=== PATIENT | female | born 1965 | race Caucasian/White ===

== ENCOUNTER 2017-03-07 05:57 | Day surgery (SDC) | payer BC, OTHER ==
[2017-02-27 10:25] LABS: ABSOLUTE EOSINOPHILS # (AUTO) 0.2 10^3/uL (0.0-0.6); ABSOLUTE LYMPHOCYTES (AUTO) 3.1 10^3/uL (0.5-4.7); ABSOLUTE MONOCYTES (AUTO) 0.6 10^3/uL (0.1-1.4); ABSOLUTE NEUT (AUTO) 2.6 10^3/uL (1.7-8.2); BASOPHILS % (AUTO) 0.3 % (0-2); EOSINOPHILS % (AUTO) 2.8 % (0-6); HEMATOCRIT 36.8 % (36.0-47.0); HEMOGLOBIN 12.5 g/dL (12.0-15.5); HGB HCT DIFFERENCE 0.7; MEAN CORPUSCULAR HEMOGLOBIN 33.4 pg (27.0-33.4); MEAN CORPUSCULAR HGB CONC 33.8 g/dL (32.0-36.0); MEAN CORPUSCULAR VOLUME 99 fl (80-97); MONOCYTES % (AUTO) 9.7 % (3-13); RED BLOOD COUNT 3.73 10^6/uL (3.72-5.28); RED CELL DISTRIBUTION WIDTH 12.5 % (11.5-14.0); SEGMENTED NEUTROPHILS % (AUTO) 39.2 % (42-78); WHITE BLOOD COUNT 6.5 10^3/uL (4.0-10.5)
[2017-02-27 10:31] LABS: APPEARANCE,URINE CLEAR; BILIRUBIN,URINE NEGATIVE (NEGATIVE); GLUCOSE, URINE NEGATIVE (NEGATIVE); KETONES,URINE NEGATIVE (NEGATIVE); LEUKOCYTE ESTERASE,URINE NEGATIVE (NEGATIVE); NITRITE,URINE NEGATIVE (NEGATIVE); PROTEIN,URINE NEGATIVE (NEGATIVE); URINE SPECIFIC GRAVITY 1.012; UROBILINOGEN,URINE NEGATIVE mg/dL (<2.0)
[2017-02-27 10:50] LABS: ANION GAP 10 (5-19); BLOOD UREA NITROGEN 14 mg/dL (7-20); CALCIUM 8.9 mg/dL (8.4-10.2); CARBON DIOXIDE 25 mmol/L (22-30); CHLORIDE 105 mmol/L (98-107); CREATININE RESULT 0.73 mg/dL (0.52-1.25); GLUCOSE 142 mg/dL (75-110); POTASSIUM 4.2 mmol/L (3.6-5.0); SODIUM 139.9 mmol/L (137-145)
--- NOTE | 2017-02-27 13:11 | RADIOLOGY REPORT (SQ) ---
EXAM DESCRIPTION: CHEST PA/LATERAL COMPLETED DATE/TIME: 02/27/2017 11:16 am REASON FOR STUDY: PRE OP COMPARISON: Chest films 08/10/2009, 07/17/2013 CT angio chest 12/12/2015 EXAM PARAMETERS: NUMBER OF VIEWS: two views TECHNIQUE: Digital Frontal and Lateral radiographic views of the chest acquired. RADIATION DOSE: NA LIMITATIONS: none FINDINGS: LUNGS AND PLEURA: No opacities, masses or pneumothorax. No pleural effusion. MEDIASTINUM AND HILAR STRUCTURES: No masses or contour abnormalities. HEART AND VASCULAR STRUCTURES: Heart normal size. No evidence for failure. BONES: No acute findings. HARDWARE: None in the chest. OTHER: No other significant finding. IMPRESSION: NO SIGNIFICANT RADIOGRAPHIC FINDING IN THE CHEST. TECHNICAL DOCUMENTATION: JOB ID: [id number] [employer]- All Rights Reserved
--- NOTE | 2017-02-27 21:24 | EKG REPORT ---
SEVERITY:- NORMAL ECG - SINUS RHYTHM : Confirmed by: Bettie Elizabeth 27-Feb-2017 21:23:05
[~2017-03-07 05:57] MED LIST: CEFAZOLIN 2 GM/D5W RTU 2 GM/50 ML RTUPB IV PRN; LIDOCAINE 0.5% INJ-PF (5 MG/ML) 50 ML SDV INJ PRN; RINGERS SOLUTION,LACTATED 1,000 ML IV PRN
[2017-03-07] MEDS ORDERED: EPINEPHRINE INJ/PF 1 MG/1 ML AMPULE ONE (07:27)
[2017-03-07] MEDS ORDERED: BUPIVACAINE HCL 0.5 % INJ/PF 30 ML SDV ONE (07:27)
[2017-03-07] MEDS ORDERED: FENTANYL CITRATE INJ/PF 100 MCG/2 ML AMPUL ONE ×2 (08:49→08:50)
[2017-03-07] MEDS ORDERED: PROPOFOL INJ 200 MG/20 ML VIAL IV ONE (08:50)
[2017-03-07] MEDS ORDERED: IBUPROFEN INJ 800 MG/8 ML VIAL IV ONE (08:50)
[2017-03-07] MEDS ORDERED: DEXAMETHASONE SOD PHOSPHATE INJ 4 MG/1 ML VIAL ONE (08:50)
[2017-03-07] MEDS ORDERED: MIDAZOLAM 2 MG/2 ML INJ ONE (08:50)
[2017-03-07] MEDS ORDERED: ONDANSETRON HCL INJ/PF 4 MG/2 ML SDV ONE (08:50)
[2017-03-07] MEDS ORDERED: MORPHINE SULFATE 10 MG/ML INJ ONE ×2 (08:51→12:57)
[2017-03-07] MEDS ORDERED: FENTANYL CITRATE INJ/PF 100 MCG/2 ML AMPUL IV PRN ×3 (09:45)
[2017-03-07] MEDS ORDERED: MORPHINE SULFATE 10 MG/ML INJ IV PRN (09:45)
[2017-03-07] MEDS ORDERED: MEPERIDINE HCL/PF INJ 25 MG/1 ML DISP.SYRIN IV PRN (09:45)
[2017-03-07] MEDS ORDERED: OXYCODONE-ACETAMINOPHEN 5-325 MG TABLET PO PRN ×2 (09:45)
[2017-03-07] MEDS ORDERED: PROMETHAZINE HCL INJ 25 MG/1 ML VIAL IV PRN ×2 (09:45)
[2017-03-07] MEDS ORDERED: DIPHENHYDRAMINE HCL 50 MG/ML VIAL IV PRN (09:45)
[2017-03-07] MEDS: FENTANYL CITRATE INJ/PF 100 MCG/2 ML AMPUL ONE ×4 (12:40→13:10)
--- NOTE | 2017-03-07 12:40 | Operative Report ---
Operative Report DATE OF SURGERY: 03/07/17 PREOPERATIVE DIAGNOSIS: Left rotator cuff tear. POSTOPERATIVE DIAGNOSIS: Left full-thickness rotator cuff tear with SLAP tear and partial tear of the long head of the biceps OPERATION: Left shoulder arthroscopic rotator cuff repair and arthroscopic biceps tenodesis SURGEON: CODY PONCE ANESTHESIA: GA TISSUE REMOVED OR ALTERED: None COMPLICATIONS: None ESTIMATED BLOOD LOSS: 15 mL INTRAOPERATIVE FINDINGS: As above PROCEDURE: IMPLANTS: 5.5 bio composite corkscrew 2 and 4.75 swivel lock 2 DESCRIPTION OF PROCEDURE: Patient was brought to the operating room placed in supine position. After successfully induced and intubated the patient patient was placed in the beachchair position the head and endotracheal tube was secured appropriately. The left shoulder shoulder was prepped and draped in a normal surgical fashion. A timeout was done identifying the left shoulder shoulder as the correct site. After inflating the glenohumeral joint with sterile saline solution an 11 blade was used to establish the posterior portal. The arthroscope was introduced and return of fluid was seen showing that we successfully penetrated the glenohumeral joint. With the use of spinal needle we're able to daphnie the anterior portal and using an 11 blade able to establish anterior portal. A cannula was introduced through the anterior portal. At this point diagnostic scope was done. Patient noted to have a type II SLAP tear with greater than 5 mm of lifting off of the superior labrum. In additional to this patient also had a partial tear of the long head of the biceps tendon at the attachment to the labrum. As suspected patient had an MRI and scope showing full-thickness rotator cuff tear. I percutaneously. The long head of biceps with a spinal needle and fed a Prolene stitch through it. Needle was removed and the attachment of the long head of the biceps was cut with the arthroscopic scissor. A lateral portal was established 11 blade. 4.0mm shaver was introduced and was used to prepare the tear and greater tuberosity bone for preparation of anchor placement. Once I was satisfied with the preparation I then redirected my scope into the subacromial space. First was able to release the tenotomized biceps tendon through the lateral portal and a half FiberWire stitch through it. Remove the biceps through the anterior portal. I was able to visualize the rotator cuff tear in the subacromial space and debride it and define it further. A percutaneous incision was then just adjacent to the acromion on the lateral aspect. Through this percutaneous hole the awl was used to prepare the hole for an anchor. [place] was percutaneously sent flushed with the bone just adjacent to the articular margin. A second anchor was placed more posteriorly using same technique. Sutures were passed through the anterior portal and percutaneous incision for proper suture management. With the use of the scorpion and I proceeded to pass the sutures through the rotator cuff tendon with proper suture management was able to pass the strands either through percutaneous hole or the anterior portal. Once I was satisfied with placement of all my sutures I then proceeded to do my arthroscopic knots. At this point the strands were used to do our lateral row. Bicomposite show out was used and the lateral aspect of the humerus was then cleaned off with a shaver and electrocautery. Once identified once I was replacement I proceeded to use my awl to do my hole. This this point the sutures were adequately tensioned and secured , increasing the footprint of the rotator cuff repair. Remaining strands were cut with the arthroscopic cutter. At this point the FiberWire suture that was passed several times to the long head of the biceps tendon was passed through the anterior portion of the rotator cuff repair and secured for soft tissue tenodesis. Arthroscopic knots were used to secure the tendon. Remaining strands were cut with the arthroscopic cutter. Final pictures were taking showing my repair and tenodesis. At this point fluid from the shoulder was removed camera and instruments were all removed. I proceeded to close my portal sites with 3-0 nylon. Xeroform 4 x 4 dressing followed by ABDs pads and Medipore tape was applied. Patient was placed in a sling and returned to supine position where he was successfully extubated and taken to PACU in stable condition.
[2017-03-07] MEDS ORDERED: OXYCODONE HCL IR 5 MG TABLET PO PRN (12:44)
--- NOTE | 2017-03-07 12:44 | PDOC DISCHARGE SUMMARY ---
Discharge Summary (SDC) - Discharge Final Diagnosis: Status post left rotator cuff repair and biceps tenodesis Date of Surgery: 03/07/17 Discharge Date: 03/07/17 Condition: Good Treatment or Instructions: Patient is instructed to follow up in 10-14 days. Patient instructed to remove dressing in 4 days then can shower and apply Band- Aids as needed. Patient to wear sling for comfort but okay to remove for shower and pendulum exercises. Pendulum exercises are instructed to be done 3 times a day ideally with breakfast, lunch, dinners and showers. Patient instructed to call if there is any signs of redness or drainage fevers or chills. Prescriptions: Oxycodone HCl/Acetaminophen [Percocet 7.5-325 mg Tablet] 1 - 2 tab PO ASDIR PRN #60 tab PRN Reason: Discharge Diet: As Tolerated Respiratory Treatments at Home: Deep Breathing/Coughing Discharge Activity: No Driving - While on narcotic, No Lifting/Push/Pulling Home Care Assistance: None Needed Report the Following to Your Physician Immediately: Shortness of Breath, Vomiting, Increase in Pain, Fever over 101 Degrees, Unusual Bleeding, Redness, Swelling, Warmth, Drainage-Yellow, Drainage-[place], Drainage-Green, Drainage-Foul Smelling
[2017-03-07] MEDS ORDERED: ROCURONIUM BROMIDE INJ 50 MG/5 ML VIAL IV ONE (13:21)
[2017-03-07] MEDS ORDERED: SUCCINYLCHOLINE CHLORIDE INJ 200 MG/10 ML VIAL ONE (13:21)
[2017-03-07 16:46] VITALS: BP 144/98
== END 2017-03-07 16:00 | disposition home or self-care (01) ==
LOC: OROUT 05:57
PROVIDERS: ATTEND Orthopaedic Surgery
PROC: 0LS24ZZ Reposition Left Shoulder Tendon, Percutaneous Endoscopic Approach (ICD-10-PCS; 2017-03-07)
PROC: 0LQ24ZZ Repair Left Shoulder Tendon, Percutaneous Endoscopic Approach (ICD-10-PCS; principal; 2017-03-07 08:45)
DX: M75.122 Complete rotator cuff tear or rupture of left shoulder, not specified as traumatic (principal); S43.432A Superior glenoid labrum lesion of left shoulder, initial encounter; S46.112A Strain of muscle, fascia and tendon of long head of biceps, left arm, initial encounter; X58.XXXA Exposure to other specified factors, initial encounter
CPT/HCPCS: 93005; 36415; 85025; 80048; 81001; 71020; 93010; 29827; 29828; C1713 ×2; J2250; J3490; J1100; J0171; J3010; J2270; J0330; J2405; J2704; J0690; J1741; 1630

== ENCOUNTER → 2017-05-09 | Outpatient (CLI) | payer BC ==
--- NOTE | 2017-05-09 16:11 | WOMENS IMAGING REPORT ---
EXAM DESCRIPTION: BILAT SCREENING MAMMO W/CAD COMPLETED DATE/TIME: 05/09/2017 10:50 am REASON FOR STUDY: SCREENING MAMMO Z12.31 ENCNTR SCREEN MAMMOGRAM FOR MALIGNANT NEOPLASM OF [place]EN[place] COMPARISON: Multiple since 2012 TECHNIQUE: Standard craniocaudal and mediolateral oblique views of each breast recorded using digita l acquisition. LIMITATIONS: None. FINDINGS: No masses, calcifications or architectural distortion. No areas of suspicion. Read with the assistance of CAD. .[facility] - R2 Cenova Version 1.3 .[facility] - R2 Cenova Version 1.3 .[facility] - R2 Cenova Version 2.4 .[facility] [place] C[place]ova Version 2.4 .[facility] - R2 [employer] Version 9.2 IMPRESSION: NORMAL MAMMOGRAM. BIRADS 1. BREAST DENSITY: c. The breasts are heterogeneously dense, which may obscure small masses. BIRAD: 1 NEGATIVE RECOMMENDATION: ROUTINE SCREENING Please consider bilateral screening tomosynthesis in May 2018 COMMENT: The patient has been notified of the results by letter per SA requirements. Additional no tification policies are in place for contacting patient with suspicious or incomplete findings. Quality ID #[id number]: The [employer] recommends an annual screening mammogram for women aged 40 years or over. This facility utilizes a reminder system to ensure that all patients receive reminder letters, and/or direct phone calls for appointments. This includes reminders for routine scr eening mammograms, diagnostic mammograms, or other Breast Imaging Interventions when appropriate. Th is patient will be placed in the appropriate reminder system. The [employer] (ACR) has developed recommendations for screening MRI of the breast s in certain patient populations, to be used in conjunction with mammography. Breast MRI surveillanc e may be appropriate for women with more than 20% lifetime risk of developing breast cancer as deter mined by genetic testing, significant family history of the disease, or history of mantle radiation f or Hodgkins Disease. ACR Practice Guidelines 2008. TECHNICAL DOCUMENTATION: FINDING NUMBER: (1) ASSESSMENT: (1) JOB ID: [id number] [employer]- All Rights Reserved
== END ==
LOC: WI 10:22
PROVIDERS: ATTEND Internal Medicine
DX: Z12.31 Encounter for screening mammogram for malignant neoplasm of breast (principal)
CPT/HCPCS: 77067; G0202

== ENCOUNTER 2017-08-23 13:38 | Observation (INO) | payer BC ==
[2017-08-23 14:23] LABS: HEMATOCRIT 37.9 % (36.0-47.0); HEMOGLOBIN 13.2 g/dL (12.0-15.5); HGB HCT DIFFERENCE 1.7; MEAN CORPUSCULAR HEMOGLOBIN 32.8 pg (27.0-33.4); MEAN CORPUSCULAR HGB CONC 34.9 g/dL (32.0-36.0); MEAN CORPUSCULAR VOLUME 94 fl (80-97); RED BLOOD COUNT 4.03 10^6/uL (3.72-5.28); RED CELL DISTRIBUTION WIDTH 12.4 % (11.5-14.0); WHITE BLOOD COUNT 7.2 10^3/uL (4.0-10.5)
[2017-08-23 14:50] LABS: ALANINE AMINOTRANSFERASE 51 U/L (9-52); ALKALINE PHOSPHATASE 100 U/L (38-126); ANION GAP 11 (5-19); ASPARTATE AMINO TRANSFERASE 46 U/L (14-36); BILIRUBIN,DIRECT 0.3 mg/dL (0.0-0.4); BILIRUBIN,TOTAL 0.5 mg/dL (0.2-1.3); BLOOD UREA NITROGEN 10 mg/dL (7-20); CALCIUM 9.9 mg/dL (8.4-10.2); CARBON DIOXIDE 26 mmol/L (22-30); CHLORIDE 104 mmol/L (98-107); CREATININE RESULT 0.63 mg/dL (0.52-1.25); GLUCOSE 111 mg/dL (75-110); POTASSIUM 4.1 mmol/L (3.6-5.0); SODIUM 141.4 mmol/L (137-145); TOTAL PROTEIN 6.7 g/dL (6.3-8.2)
[2017-08-23 15:24] LABS: THYROID STIMULATING HORMONE 1.5 uIU/mL (0.47-4.68)
--- NOTE | 2017-08-23 18:38 | RADIOLOGY REPORT (SQ) ---
EXAM DESCRIPTION: MRI HEAD WITHOUT COMPLETED DATE/TIME: 08/23/2017 6:27 pm REASON FOR STUDY: TIA COMPARISON: 06/07/2016. TECHNIQUE: Multiplanar imaging includes non-contrasted T1, T2, FLAIR, and Diffusion with ADC map seq uences. Images stored on PACS. LIMITATIONS: None. FINDINGS: ANATOMY: No anomalies. Normal vascular flow voids. Pituitary fossa normal. CSF SPACES: Normal in size and contour. No hemorrhage. CEREBRUM: A few high-signal intensity lesions scattered throughout the white matter on FLAIR imaging with distribution suggesting chronic micro-vascular ischemic change. Sulci and gyri normal in size a nd contour. No evidence of hemorrhage, mass or extraaxial fluid collection. POSTERIOR FOSSA: No signal alteration. No hemorrhage. No edema, masses or mass effect. Internal charlene tory canals, cerebello-pontine angles, mastoids normal. DIFFUSION: Negative for acute or sub-acute infarction. ORBITS: No masses. Globes normal. PARANASAL SINUSES: No fluid levels. Mucosa normal. OTHER: No other significant finding. IMPRESSION: MINIMAL MICROVASCULAR ISCHEMIC CHANGE. OTHERWISE NORMAL STUDY. EVIDENCE OF ACUTE STROKE: NO. TECHNICAL DOCUMENTATION: JOB ID: [id number] [employer]- All Rights Reserved
--- NOTE | 2017-08-23 18:52 | EKG REPORT ---
SEVERITY:- NORMAL ECG - SINUS RHYTHM : Confirmed by: Redd Durbin MD 23-Aug-2017 18:51:42
[2017-08-23] MEDS ORDERED: (PENDING PHARMACY ID) (Naproxen [Naprosyn] 500 MG) PO PRN (19:06)
[2017-08-23] MEDS ORDERED: FLUOCINOLONE TP PRN (19:06)
[2017-08-23] MEDS ORDERED: (PENDING PHARMACY ID) (Oxycodone Hcl/Acetaminophen [Oxycodon-Acetaminophen 7.5-325] 1 TAB) PO PRN (19:06)
[2017-08-23] MEDS ORDERED: BUPRENORPHINE HCL 300 MCG BC SCH (19:15)
[2017-08-23] MEDS ORDERED: NAPROXEN 250 MG TABLET PO PRN (19:17)
[2017-08-23] MEDS: DULOXETINE HCL 30 MG CAPSULE.DR PO SCH (21:47)
[2017-08-23] MEDS: GABAPENTIN 300 MG CAPSULE PO SCH (21:48)
[2017-08-23] MEDS: ALPRAZOLAM 0.25 MG TABLET PO SCH (21:48)
[2017-08-23] MEDS ORDERED: PRAMIPEXOLE DI-HCL 0.25 MG TABLET PO SCH (22:00)
[2017-08-23] MEDS: OXYCODONE-ACETAMINOPHEN 5-325 MG TABLET PO PRN (22:00)
[2017-08-23] MEDS ORDERED: AMITRIPTYLINE HCL 25 MG TABLET PO SCH (22:00)
[2017-08-23] MEDS ORDERED: MONTELUKAST SODIUM 10 MG TABLET PO SCH (22:00)
[2017-08-24] MEDS: GABAPENTIN 300 MG CAPSULE PO SCH (06:12)
[2017-08-24] MEDS: OXYCODONE HCL IR 5 MG TABLET PO PRN ×2 (06:58→12:21)
[2017-08-24] MEDS ORDERED: FOLIC ACID 1 MG TABLET PO SCH (10:00)
[2017-08-24] MEDS ORDERED: LANSOPRAZOLE 30 MG TAB.RAP.DR PO SCH (10:00)
[2017-08-24] MEDS ORDERED: GLYCOPYRROLATE 1 MG TABLET PO SCH (10:00)
[2017-08-24] MEDS ORDERED: MUPIROCIN 2% OINTMENT 22 GM TP SCH (10:00)
[2017-08-24] MEDS: ALPRAZOLAM 0.25 MG TABLET PO SCH (10:20)
[2017-08-24] MEDS: DULOXETINE HCL 30 MG CAPSULE.DR PO SCH (10:20)
--- NOTE | 2017-08-24 10:23 | RADIOLOGY REPORT (SQ) ---
EXAM DESCRIPTION: CHEST SINGLE VIEW COMPLETED DATE/TIME: 08/24/2017 10:15 am REASON FOR STUDY: r/o cva COMPARISON: 02/27/2017 EXAM PARAMETERS: NUMBER OF VIEWS: One view. TECHNIQUE: Single frontal radiographic view of the chest acquired. RADIATION DOSE: NA LIMITATIONS: None. FINDINGS: LUNGS AND PLEURA: No opacities, masses or pneumothorax. No pleural effusion. MEDIASTINUM AND HILAR STRUCTURES: No masses. Contour normal. HEART AND VASCULAR STRUCTURES: Heart stable in size. Normal vasculature. BONES: No acute findings. HARDWARE: None in the chest. OTHER: No other significant finding. IMPRESSION: NO ACUTE RADIOGRAPHIC FINDING IN THE CHEST. NO SIGNIFICANT CHANGE FROM PRIOR STUDY TECHNICAL DOCUMENTATION: JOB ID: [id number] [email or web address]- All Rights Reserved
[2017-08-24] MEDS: OXYCODONE-ACETAMINOPHEN 5-325 MG TABLET PO PRN (12:20)
--- NOTE | 2017-08-24 12:48 | PDOC H&P ---
History of Present Illness Admission Date/PCP: 08/23/17 13:38 REEMA HARRY MD History of Present Illness: JONATHAN CASTANEDA is a 51 year old female, she came to the office for evaluation of slurred speech, involuntary movements of the extremities, it was difficult to establish a unifying diagnosis on the basis of her symptoms, she was admitted directly from the office into the hospital for observation and evaluation of her symptoms. MRI of the brain was done it was negative for any acute pathology, there was no acute stroke there was no intracranial lesions, she is brought in for observation for possible TIA symptoms Past Medical History Neurological Medical History: Reports: Migraine GI Medical History: Reports: Gastroesophageal Reflux Disease Musculoskeltal Medical History: Reports: Arthritis Psychiatric Medical History: Reports: Depression Past Surgical History Past Surgical History: Reports: Appendectomy, Cholecystectomy, Hysterectomy, Tubal Ligation Social History Smoking Status: Never Smoker Frequency of Alcohol Use: None Hx Recreational Drug Use: No Hx Prescription Drug Abuse: No Family History Family History: Arthritis, Hyperlipidemia, Malignancy Parental Family History Reviewed: Yes Children Family History Reviewed: Yes Sibling(s) Family History Reviewed.: Yes Medication/Allergy Home Medications: Alprazolam [Xanax 0.25 mg Tablet] 0.25 mg PO Q12 08/23/17 Amitriptyline HCl [Elavil 25 mg Tablet] 25 mg PO QHS 08/23/17 Buprenorphine HCl [Belbuca] 300 mcg BC Q12 08/23/17 Duloxetine HCl [Cymbalta] 60 mg PO Q12 08/23/17 Fluocinolone/Shower Cap [Fluocinolone 0.01% Scalp Oil] 1 applic TP ASDIR PRN Folic Acid [Folvite 1 mg Tablet] 1 mg PO DAILY 08/23/17 Gabapentin [Neurontin] 600 mg PO Q8 08/23/17 Glycopyrrolate [Robinul Forte 1 Mg Tablet] 2 mg PO TID 08/23/17 Montelukast Sodium [Singulair 10 mg Tablet] 10 mg PO QHS 08/23/17 Mupirocin [Bactroban 2% Ointment 22 gm] 1 applic TP BID 08/23/17 Naproxen [Naprosyn] 500 mg PO Q12HP PRN 08/23/17 Oxycodone HCl/Acetaminophen [Oxycodon-Acetaminophen 7.5-325] 1 tab PO QIDP PRN 08/23/17 Pantoprazole Sodium [Protonix] 40 mg PO DAILY 08/23/17 Pramipexole Di-HCl [Mirapex 0.25 Mg Tablet] 0.25 mg PO QHS 08/23/17 RX: Cephalexin [Cephalexin 250 MG Tablet] 250 mg PO TID 08/23/17 Allergies/Adverse Reactions: No Known Allergies Allergy (Verified 02/21/17 13:19) Review of Systems Constitutional: ABSENT: chills, fever(s), headache(s), weight gain, weight loss Eyes: ABSENT: visual disturbances Ears: ABSENT: hearing changes Cardiovascular: ABSENT: chest pain, dyspnea on exertion, edema, orthropnea, palpitations Respiratory: ABSENT: cough, hemoptysis Gastrointestinal: ABSENT: abdominal pain, constipation, diarrhea, hematemesis, hematochezia, nausea, vomiting Genitourinary: ABSENT: dysuria, hematuria Musculoskeletal: ABSENT: joint swelling Integumentary: ABSENT: rash, wounds Neurological: PRESENT: paresthesias Psychiatric: ABSENT: anxiety, depression, homidical ideation, suicidal ideation Endocrine: ABSENT: cold intolerance, heat intolerance, menstrual abnormalities, polydipsia, polyuria Hematologic/Lymphatic: ABSENT: easy bleeding, easy bruising, lymphadenopathy Physical Exam Vital Signs: Temp Pulse Resp BP Pulse Ox 98.5 F 77 18 118/69 95 08/24/17 07:41 08/24/17 07:41 08/24/17 07:41 08/24/17 07:41 08/24/17 07:41 Intake & Output 08/23/17 08/24/17 08/25/17 06:59 06:59 06:59 Intake Total 333 Output Total 700 Balance -367 Weight 90.3 kg General appearance: PRESENT: no acute distress, well-developed, well-nourished Head exam: PRESENT: atraumatic, normocephalic Eye exam: PRESENT: conjunctiva pink, EOMI, PERRLA Ear exam: PRESENT: normal external ear exam Mouth exam: PRESENT: moist, tongue midline Neck exam: PRESENT: full ROM Respiratory exam: PRESENT: clear to auscultation swetha Cardiovascular exam: PRESENT: RRR, +S1, +S2 Pulses: PRESENT: normal dorsalis pedis pul, +2 pedal pulses bilateral Vascular exam: PRESENT: normal capillary refill GI/Abdominal exam: PRESENT: normal bowel sounds, soft Rectal exam: PRESENT: deferred Neurological exam: PRESENT: alert, awake, oriented to person, oriented to place , oriented to time, oriented to situation, CN II-XII grossly intact Psychiatric exam: PRESENT: appropriate affect, normal mood Skin exam: PRESENT: dry, intact, warm Results Laboratory Results: 08/23/17 14:16 08/23/17 14:16 08/23/17 08/23/17 08/23/17 14:16 14:16 14:16 WBC 7.2 RBC 4.03 Hgb 13.2 Hct 37.9 MCV 94 MCH 32.8 MCHC 34.9 RDW 12.4 Plt Count 323 Sodium 141.4 Potassium 4.1 Chloride 104 Carbon Dioxide 26 Anion Gap 11 BUN 10 Creatinine 0.63 Est GFR ( Amer) > 60 Est GFR (Non-Af Amer) > 60 Glucose 111 H Calcium 9.9 Total Bilirubin 0.5 AST 46 H ALT 51 Alkaline Phosphatase 100 Total Protein 6.7 Albumin 4.0 TSH 1.50 Free T4 1.06 Impressions: Head MRI 08/23/17 00:00 IMPRESSION: MINIMAL MICROVASCULAR ISCHEMIC CHANGE. OTHERWISE NORMAL STUDY. EVIDENCE OF ACUTE STROKE: NO. Chest X-Ray 08/24/17 10:00 IMPRESSION: NO ACUTE RADIOGRAPHIC FINDING IN THE CHEST. NO SIGNIFICANT CHANGE FROM PRIOR STUDY Assessment & Plan - Diagnosis (1) Encephalopathy, unspecified Is this a current diagnosis for this admission?: Yes Plan: She is admitted for observation
--- NOTE | 2017-08-24 13:02 | PDOC DISCHARGE SUMMARY ---
General - Admit/Disc Date/PCP Admission Date/Primary Care Provider: 08/23/17 13:38 REEMA HARRY MD Discharge Date: 08/24/17 - Discharge Diagnosis (1) Encephalopathy, unspecified Is this a current diagnosis for this admission?: Yes - Additional Information Discharge Diet: Regular Discharge Activity: Activity As Tolerated Home Medications: Alprazolam [Xanax 0.25 mg Tablet] 0.25 mg PO Q12 08/23/17 Amitriptyline HCl [Elavil 25 mg Tablet] 25 mg PO QHS 08/23/17 Buprenorphine HCl [Belbuca] 300 mcg BC Q12 08/23/17 Cephalexin [Cephalexin 250 MG Tablet] 250 mg PO TID 08/23/17 Duloxetine HCl [Cymbalta] 60 mg PO Q12 08/23/17 Fluocinolone/Shower Cap [Fluocinolone 0.01% Scalp Oil] 1 applic TP ASDIR PRN Folic Acid [Folvite 1 mg Tablet] 1 mg PO DAILY 08/23/17 Gabapentin [Neurontin] 600 mg PO Q8 08/23/17 Glycopyrrolate [Robinul Forte 1 mg Tablet] 2 mg PO TID 08/23/17 Montelukast Sodium [Singulair 10 mg Tablet] 10 mg PO QHS 08/23/17 Mupirocin [Bactroban 2% Ointment 22 gm] 1 applic TP BID 08/23/17 Naproxen [Naprosyn] 500 mg PO Q12HP PRN 08/23/17 Oxycodone HCl/Acetaminophen [Oxycodon-Acetaminophen 7.5-325] 1 tab PO QIDP PRN 08/23/17 Pantoprazole Sodium [Protonix] 40 mg PO DAILY 08/23/17 Pramipexole Di-HCl [Mirapex 0.25 mg Tablet] 0.25 mg PO QHS 08/23/17 History of Present Illness History of Present Illness: JONATHAN CASTANEDA is a 51 year old female, she came to the office for evaluation of slurred speech, involuntary movements of the extremities, it was difficult to establish a unifying diagnosis on the basis of her symptoms, she was admitted directly from the office into the hospital for observation and evaluation of her symptoms. MRI of the brain was done it was negative for any acute pathology, there was no acute stroke there was no intracranial lesions, she is brought in for observation for possible TIA symptoms Hospital Course Hospital Course: She was admitted for observation for unspecified encephalopathy, hospital course was not eventful Physical Exam Vital Signs: Temp Pulse Resp BP Pulse Ox 98.5 F 77 18 118/69 95 08/24/17 07:41 08/24/17 07:41 08/24/17 07:41 08/24/17 07:41 08/24/17 07:41 Intake & Output 08/23/17 08/24/17 08/25/17 06:59 06:59 06:59 Intake Total 333 Output Total 700 Balance -367 Weight 90.3 kg General appearance: PRESENT: no acute distress, well-developed, well-nourished Head exam: PRESENT: atraumatic, normocephalic Eye exam: PRESENT: conjunctiva pink, EOMI, PERRLA Ear exam: PRESENT: normal external ear exam Mouth exam: PRESENT: moist, tongue midline Neck exam: PRESENT: full ROM Respiratory exam: PRESENT: clear to auscultation swetha Cardiovascular exam: PRESENT: RRR, +S1, +S2 Pulses: PRESENT: normal dorsalis pedis pul, +2 pedal pulses bilateral Vascular exam: PRESENT: normal capillary refill GI/Abdominal exam: PRESENT: normal bowel sounds, soft Rectal exam: PRESENT: deferred Neurological exam: PRESENT: alert, awake, oriented to person, oriented to place , oriented to time, oriented to situation, CN II-XII grossly intact Psychiatric exam: PRESENT: appropriate affect, normal mood Skin exam: PRESENT: dry, intact, warm Results Laboratory Results: 08/23/17 14:16 08/23/17 14:16 08/23/17 08/23/17 08/23/17 14:16 14:16 14:16 WBC 7.2 RBC 4.03 Hgb 13.2 Hct 37.9 MCV 94 MCH 32.8 MCHC 34.9 RDW 12.4 Plt Count 323 Sodium 141.4 Potassium 4.1 Chloride 104 Carbon Dioxide 26 Anion Gap 11 BUN 10 Creatinine 0.63 Est GFR ( Amer) > 60 Est GFR (Non-Af Amer) > 60 Glucose 111 H Calcium 9.9 Total Bilirubin 0.5 AST 46 H ALT 51 Alkaline Phosphatase 100 Total Protein 6.7 Albumin 4.0 TSH 1.50 Free T4 1.06 Impressions: Head MRI 08/23/17 00:00 IMPRESSION: MINIMAL MICROVASCULAR ISCHEMIC CHANGE. OTHERWISE NORMAL STUDY. EVIDENCE OF ACUTE STROKE: NO. Chest X-Ray 08/24/17 10:00 IMPRESSION: NO ACUTE RADIOGRAPHIC FINDING IN THE CHEST. NO SIGNIFICANT CHANGE FROM PRIOR STUDY
[2017-08-24 13:12] VITALS: BP 132/89
== END 2017-08-24 14:13 | disposition home or self-care (01) ==
LOC: 3S 13:38
PROVIDERS: ADMIT Internal Medicine; ATTEND Internal Medicine
DX: G93.40 Encephalopathy, unspecified (principal); R20.2 Paresthesia of skin; M06.9 Rheumatoid arthritis, unspecified; L40.52 Psoriatic arthritis mutilans; M79.7 Fibromyalgia; M51.36 Other intervertebral disc degeneration, lumbar region; Z79.899 Other long term (current) drug therapy; Z90.49 Acquired absence of other specified parts of digestive tract
CPT/HCPCS: 36415; 84439; 84443; 85027; 80076; 80048; 70551; 71010; 93005; 93010; G0378 ×2; G0379; J3490 ×4

== ENCOUNTER → 2017-10-16 | Outpatient (CLI) | payer BC ==
--- NOTE | 2017-10-16 15:48 | RADIOLOGY REPORT (SQ) ---
EXAM DESCRIPTION: KNEE BILATERAL 1-2 VIEWS COMPLETED DATE/TIME: 10/16/2017 2:14 pm REASON FOR STUDY: BILAT KNEE PAIN (M25.562, M25.561) M25.562 PAIN IN LEFT KNEE M25.561 PAIN IN RIG HT KNEE COMPARISON: None. NUMBER OF VIEWS: Four views. TECHNIQUE: AP and lateral radiographic images acquired of the right and left knee. LIMITATIONS: None. FINDINGS: MINERALIZATION: Normal. BONES: No acute fracture or dislocation. No worrisome bone lesions. No significant osteophytes. JOINT: No effusion. No chondrocalcinosis. OTHER: No other significant finding. IMPRESSION: NEGATIVE STUDY OF THE RIGHT AND LEFT KNEES. NO RADIOGRAPHIC EVIDENCE OF ACUTE INJURY. NO EXPLANATION FOR PAIN. TECHNICAL DOCUMENTATION: JOB ID: [id number] [employer]- All Rights Reserved
== END ==
LOC: RAD 13:46
PROVIDERS: ATTEND Internal Medicine
DX: M25.562 Pain in left knee (principal); M25.561 Pain in right knee

== ENCOUNTER → 2017-12-06 | Day surgery (SDC) | payer BC ==
--- NOTE | 2017-12-06 15:04 | RADIOLOGY REPORT (SQ) ---
EXAM DESCRIPTION: ARTHRO SHOULDER INJECTION COMPLETED DATE/TIME: 12/06/2017 2:57 pm REASON FOR STUDY: PAIN IN LEFT SHOULDER (M25.512) M25.512 PAIN IN LEFT SHOULDER COMPARISON: None. FLUOROSCOPY TIME: 0.3 minutes 2 images saved to PACS. LIMITATIONS: None. PROCEDURE: Procedure, risks, benefits and alternatives explained to patient who then gave written co nsent. The left shoulder was marked and a time out was called for correct procedure verification. Po sterior entry site marked using fluoroscopic guidance. Shoulder prepped and draped using sterile deandra hnique. Local anesthesia achieved using 1% lidocaine injection. Hypodermic needle introduced into t he joint space under direct fluoroscopic visualization. Non-ionic contrast instilled to confirm intra -articular position. Dilute gadolinium solution then injected. Needle removed and entry site covered with sterile bandage. No immediate complications noted. TECHNIQUE: Digital images acquired during fluoroscopy and stored on PACS. Patient immediately take n to the MR suite for additional imaging. INJECTION LOCATION: Posterior CONTRAST TYPE AND AMOUNT: 10 mL ProHance solution IMPRESSION: SUCCESSFUL NEEDLE PLACEMENT AND INJECTION FOR left SHOULDER MR ARTHROGRAM USING POSTERIO R APPROACH. COMMENT: Quality ID [id number]: Final reports for procedures using fluoroscopy that document radiation exp osure indices, or exposure time and number of fluorographic images (if radiation exposure indices are not available) TECHNICAL DOCUMENTATION: JOB ID: [id number] [employer]- All Rights Reserved Reading location - IP/workstation name: [email or web address]
--- NOTE | 2017-12-06 15:05 | RADIOLOGY REPORT (SQ) ---
EXAM DESCRIPTION: FLUORO/NEEDLE PLACEMENT COMPLETE DATE/TIME: 12/06/2017 2:57 pm REASON FOR STUDY: PAIN IN LEFT SHOULDER (M25.512) M25.512 PAIN IN LEFT SHOULDER FINDINGS: Please see combined report for performance of procedure and radiologic supervision and int erpretation. IMPRESSION: Please see combined report for performance of procedure and radiologic supervision and i nterpretation. Reading location - IP/workstation name: [email or web address]
--- NOTE | 2017-12-07 16:27 | RADIOLOGY REPORT (SQ) ---
EXAM DESCRIPTION: MRI LT UPPER JOINT WITH COMPLETED DATE/TIME: 12/06/2017 3:25 pm REASON FOR STUDY: PAIN IN LEFT SHOULDER (M25.512) M25.512 PAIN IN LEFT SHOULDER COMPARISON: Plain radiograph TECHNIQUE: Left shoulder images acquired and stored on PACS. Oblique coronal, oblique sagittal, and axial imaging to include fat sensitive sequences as T1, water sensitive sequences as FST2/STIR, and c ontrast sensitive sequences as FST1. LIMITATIONS: None. FINDINGS: JOINT DISTENTION: Adequate distention for interpretation. BONE MARROW AND CORTEX: Normal. No significant osteophytes. No edema or defects. AC JOINT: Type II acromion. Moderate hypertrophic changes of the AC joint GLENOHUMERAL JOINT: No subluxation or dislocation. No focal chondral defects or reactive bone changes . ROTATOR CUFF: There is a full-thickness tear with retraction of the anterior supraspinatus. There is also a full-thickness tear of the posterior supraspinatus with retraction of 2.1 cm. This tear is a t the musculotendinous junction. Centrally there is a band of supraspinatus which is intact. Subsca pularis is intact. infraspinatus is intact. LABRUM AND BICEPS LABRAL COMPLEX: No discrete labral tear. This tendinopathy of the biceps tendon. The distal tendon is in its normal anatomic location. INFERIOR LABRAL COMPLEX: Bony glenoid and labrum intact. IGHL intact without thickening or tear. No p aralabral cysts. ADJACENT SOFT TISSUES: No masses or nodes. OTHER: No other significant finding. IMPRESSION: Recurrent rotator cuff tear with bands of the anterior and posterior supraspinatus with full-thickness tear. There is a central band at is intact. infraspinatus and subscapularis intact. Generalized grade 2 fatty infiltration of the supraspinatus and infraspinatus. TECHNICAL DOCUMENTATION: JOB ID: [id number] [employer]- All Rights Reserved Reading location - IP/workstation name: [email or web address]
== END ==
LOC: RAD 13:55
PROVIDERS: ATTEND Orthopaedic Surgery
PROC: BP09ZZZ Plain Radiography of Left Shoulder (ICD-10-PCS; principal; 2017-12-06)
DX: M75.122 Complete rotator cuff tear or rupture of left shoulder, not specified as traumatic (principal); M25.512 Pain in left shoulder
CPT/HCPCS: 23350; 77002

== ENCOUNTER 2017-12-26 06:43 | Day surgery (SDC) | payer BC ==
[2017-12-20 12:07] LABS: APPEARANCE,URINE CLEAR; BILIRUBIN,URINE NEGATIVE (NEGATIVE); COLOR,URINE YELLOW; GLUCOSE, URINE NEGATIVE (NEGATIVE); KETONES,URINE NEGATIVE (NEGATIVE); LEUKOCYTE ESTERASE,URINE NEGATIVE (NEGATIVE); NITRITE,URINE NEGATIVE (NEGATIVE); PROTEIN,URINE NEGATIVE (NEGATIVE); URINE SPECIFIC GRAVITY 1.012; UROBILINOGEN,URINE NEGATIVE mg/dL (<2.0)
[2017-12-20 12:10] LABS: ABSOLUTE EOSINOPHILS # (AUTO) 0.2 10^3/uL (0.0-0.6); ABSOLUTE LYMPHOCYTES (AUTO) 2.7 10^3/uL (0.5-4.7); ABSOLUTE MONOCYTES (AUTO) 0.6 10^3/uL (0.1-1.4); ABSOLUTE NEUT (AUTO) 3.5 10^3/uL (1.7-8.2); BASOPHILS % (AUTO) 0.3 % (0-2); EOSINOPHILS % (AUTO) 2.3 % (0-6); HEMATOCRIT 38.2 % (36.0-47.0); HEMOGLOBIN 13.3 g/dL (12.0-15.5); LYMPHOCYTES % (AUTO) 39.1 % (13-45); MEAN CORPUSCULAR HEMOGLOBIN 32.7 pg (27.0-33.4); MEAN CORPUSCULAR HGB CONC 34.9 g/dL (32.0-36.0); MEAN CORPUSCULAR VOLUME 94 fl (80-97); MONOCYTES % (AUTO) 8.5 % (3-13); PLATELET COUNT 342 10^3/uL (150-450); RED BLOOD COUNT 4.08 10^6/uL (3.72-5.28); RED CELL DISTRIBUTION WIDTH 12.4 % (11.5-14.0); SEGMENTED NEUTROPHILS % (AUTO) 49.8 % (42-78); TOTAL CELLS COUNTED % (AUTO) 100 %; WHITE BLOOD COUNT 6.9 10^3/uL (4.0-10.5)
[2017-12-20 12:36] LABS: ANION GAP 10 (5-19); BLOOD UREA NITROGEN 11 mg/dL (7-20); CALCIUM 9.9 mg/dL (8.4-10.2); CARBON DIOXIDE 32 mmol/L (22-30); CHLORIDE 101 mmol/L (98-107); GLUCOSE 115 mg/dL (75-110); POTASSIUM 4.7 mmol/L (3.6-5.0); SODIUM 143.2 mmol/L (137-145)
--- NOTE | 2017-12-20 21:22 | EKG REPORT ---
SEVERITY:- NORMAL ECG - SINUS RHYTHM : Confirmed by: Bettie Elizabeth 20-Dec-2017 21:21:19
[~2017-12-26 06:43] MED LIST changes: +LACTATED RINGERS 1000 ML IV PRN; -LIDOCAINE 0.5% INJ-PF (5 MG/ML) 50 ML SDV INJ PRN; +LIDOCAINE 0.5% INJ-PF (5 MG/ML) 50 ML SDV SUBCUT PRN; -RINGERS SOLUTION,LACTATED 1,000 ML IV PRN
[2017-12-26] MEDS ORDERED: CEFAZOLIN SODIUM 2 GM in DEXTROSE 5%-WATER 100 ML IV PRN (07:14)
[2017-12-26] MEDS ORDERED: ACETAMINOPHEN 325 MG TABLET ONE (07:33)
[2017-12-26] MEDS ORDERED: BUPIVACAINE HCL 0.5 % INJ/PF 30 ML SDV ONE (08:01)
[2017-12-26] MEDS ORDERED: EPINEPHRINE INJ/PF 1 MG/1 ML AMPULE ONE (08:01)
[2017-12-26] MEDS ORDERED: MIDAZOLAM 2 MG/2 ML INJ ONE (10:33)
[2017-12-26] MEDS ORDERED: PROPOFOL INJ 200 MG/20 ML VIAL IV ONE (10:33)
[2017-12-26] MEDS ORDERED: ONDANSETRON HCL INJ/PF 4 MG/2 ML SDV ONE ×2 (10:33→13:55)
[2017-12-26] MEDS ORDERED: DEXAMETHASONE SOD PHOSPHATE INJ 4 MG/1 ML VIAL ONE (10:33)
[2017-12-26] MEDS ORDERED: FENTANYL CITRATE INJ/PF 250 MCG/5 ML AMPULE ONE (10:33)
[2017-12-26] MEDS ORDERED: ACETAMINOPHEN 100 ML IV ONE (10:33)
[2017-12-26] MEDS ORDERED: HYDROMORPHONE HCL INJ/PF 2 MG/ML AMPULE ONE (10:34)
[2017-12-26] MEDS ORDERED: DIPHENHYDRAMINE HCL 50 MG/ML VIAL IV PRN (12:38)
[2017-12-26] MEDS ORDERED: PROMETHAZINE HCL INJ 25 MG/1 ML VIAL IV PRN ×2 (12:38)
[2017-12-26] MEDS ORDERED: OXYCODONE-ACETAMINOPHEN 5-325 MG TABLET PO PRN ×4 (12:38→13:51)
[2017-12-26] MEDS ORDERED: MEPERIDINE HCL/PF INJ 25 MG/1 ML DISP.SYRIN IV PRN (12:38)
[2017-12-26] MEDS ORDERED: FENTANYL CITRATE INJ/PF 100 MCG/2 ML AMPUL IV PRN ×3 (12:38)
--- NOTE | 2017-12-26 13:39 | Operative Report ---
Operative Report DATE OF SURGERY: 12/26/17 PREOPERATIVE DIAGNOSIS: Read tear of left rotator cuff POSTOPERATIVE DIAGNOSIS: Same OPERATION: Left shoulder arthroscopic rotator cuff repair revision SURGEON: CODY PONCE ANESTHESIA: GA TISSUE REMOVED OR ALTERED: None COMPLICATIONS: None ESTIMATED BLOOD LOSS: Less than 20 mL INTRAOPERATIVE FINDINGS: the tear was at the musculotendinous junction. The previous repair showed healing of the rotator cuff onto the humeral greater tuberosity region PROCEDURE: Patient after receiving preoperative antibiotics was brought to the operating room where she was successfully induced and intubated in supine position. Patient was then secured in a beachchair position and the left shoulder was prepped and draped in a normal sterile surgical fashion. Timeout was done identifying the left shoulder is a correct site. Spinal was used to access the posterior portal to distend the capsule with sterile saline solution. I reestablished the posterior portal using 11 blade. Used the same portal use last time and we opened him with 11 blade. Through the anterior portal I was able to place a cannula. On my diagnostic scope portion of the case after distending the capsule with sterile saline solution and noticed that the supraspinatus tendon was healed onto the greater tuberosity but torn off of the muscular tendon junction and partially scarred down to the glenoid rim. I detached that with scissors. I debrided the tissue underneath this rotator cuff and noticed that the glenohumeral joint was intact and there was no loose bodies. There is no loose sutures either. I redirected the camera to the subacromial space where I did a bursectomy and debridement of scar tissue and visualize the rotator cuff repair which the sutures were still intact and seen the crescent-shaped tear of the musculotendinous junction with the supraspinatus and part of the infraspinatus. The remaining infraspinatus and teres still had attachment posteriorly. Again I used arthroscopic scissors to cut the knots and pull out the sutures. I then used and used technique of doing ujxu-ep-xful repair using combination of a suture lasso and a scorpion needle to pass my FiberWire sutures and did mphn-zv-akdy repair arthroscopically tying knots. A total of 5 kn were applied for repair. I used a couple of simple gfel-dy-zcay sutures as well as a rmilsm-dc-exyla 2. The muscular tendinous structure did approximate nicely and did not feel it was under extreme tension. I used a probe and also seen that repair had good fixation as well. Pictures were taken showing before and after repair. At this point fluid from the shoulder was removed and then 3 portal sites were closed with 3-0 nylon. Extremity was cleaned and then Xeroform 4 x 4 dressing and ABD pad was applied and then held with Medipore tape. Drapes were removed and the patient was placed in a sling and then under supine position was extubated and sent to PACU in a stable condition.
--- NOTE | 2017-12-26 13:48 | Discharge Summary ---
Discharge Summary (SDC) - Discharge Final Diagnosis: Status post left shoulder arthroscopic rotator cuff repair revision Date of Surgery: 12/26/17 Discharge Date: 12/26/17 Condition: Good Treatment or Instructions: Patient is instructed to follow up in 10-14 days. Patient instructed to remove dressing in 4 days then can shower and apply Band- Aids as needed. Patient to wear sling for comfort but okay to remove for shower and pendulum exercises. Pendulum exercises are instructed to be done 3 times a day ideally with breakfast, lunch, dinners and showers. Patient instructed to call if there is any signs of redness or drainage fevers or chills. Prescriptions: Oxycodone HCl/Acetaminophen [Percocet 7.5-325 mg Tablet] 1 - 2 tab PO ASDIR PRN #60 tab PRN Reason: Referrals: REEMA HARRY MD [Primary Care Provider] - Discharge Diet: As Tolerated Respiratory Treatments at Home: Deep Breathing/Coughing Discharge Activity: No Driving - While taking narcotics, No Lifting/Push/Pulling , Slowly Increase Activity Home Care Assistance: None Needed Report the Following to Your Physician Immediately: Shortness of Breath, Vomiting, Increase in Pain, Fever over 101 Degrees, Unusual Bleeding, Redness, Swelling, Warmth, Increased Soreness, Drainage-Yellow, Drainage-Dover, Drainage- Green, Drainage-Foul Smelling
[2017-12-26] MEDS: FENTANYL CITRATE INJ/PF 100 MCG/2 ML AMPUL ONE ×2 (13:55→14:00)
[2017-12-26] MEDS ORDERED: PROMETHAZINE HCL INJ 25 MG/1 ML VIAL ONE (14:13)
[2017-12-26 15:20] VITALS: BP 159/102
[2017-12-26] MEDS ORDERED: SUCCINYLCHOLINE CHLORIDE INJ 200 MG/10 ML VIAL ONE (15:22)
== END 2017-12-26 16:03 | disposition home or self-care (01) ==
LOC: OROUT 06:43
PROVIDERS: ATTEND Orthopaedic Surgery
DX: M75.102 Unspecified rotator cuff tear or rupture of left shoulder, not specified as traumatic (principal); M25.512 Pain in left shoulder; K21.9 Gastro-esophageal reflux disease without esophagitis; M19.90 Unspecified osteoarthritis, unspecified site; F41.9 Anxiety disorder, unspecified; Z79.1 Long term (current) use of non-steroidal anti-inflammatories (NSAID); Z79.899 Other long term (current) drug therapy; Z79.51 Long term (current) use of inhaled steroids
CPT/HCPCS: 93005; 36415; 85025; 80048; 81001; 93010; 29827; J2250; J3490; J0690 ×2; J1100; J0171; J3010 ×2; J1170; J2550; J0330; J2405; J2704; J0131; 1630

== ENCOUNTER 2018-05-09 22:44 | Emergency (ER) | payer MEDICARE, BC ==
[2018-05-09 22:53] VITALS: BP 138/85
[2018-05-10] MEDS ORDERED: SULFAMETHOXAZOLE/TRIMETHOPRIM 800-160 MG TABLET PO ONE (01:11)
[2018-05-10] MEDS ORDERED: CEPHALEXIN 500 MG CAPSULE PO ONE (01:11)
--- NOTE | 2018-05-10 01:11 | ER Document Report ---
HPI - HPI Patient complains to provider of: right hand swelling Pain Level: 4 Notes: Patient states on Saturday she was outside and thinks she got bit by an ant to the dorsal aspect of her right hand near middle finger MCP. Patient states increased redness and swelling since potential ant bite. Patient stated this morning she was poking at the area and was able to express a scant amount of pus. Patient states throughout the day there has also been minor clear to yellow tinged drainage. Patient states increased pain which is why she presents to the emergency room. Patient denies any MRSA infections in the past or fever. - REPRODUCTIVE Reproductive: DENIES: : - MUSCULOSKELETAL Musculoskeletal: REPORTS: Extremity pain - R hand Past Medical History - General Information source: Patient - Social History Smoking Status: Unknown if Ever Smoked Lives with: Family Family History: Arthritis, Hyperlipidemia, Malignancy Patient has suicidal ideation: No Patient has homicidal ideation: No - Past Medical History Cardiac Medical History: Denies: Hx Coronary Artery Disease, Hx Heart Attack, Hx Hypertension Pulmonary Medical History: Reports: Hx Bronchitis, Hx COPD - ALBUTEROL PRN, Hx Pneumonia - "LONG TIME AGO" Denies: Hx Asthma Neurological Medical History: Reports: Hx Migraine. Denies: Hx Cerebrovascular Accident, Hx Seizures Renal/ Medical History: Denies: Hx Peritoneal Dialysis GI Medical History: Reports: Hx Gastroesophageal Reflux Disease Musculoskeletal Medical History: Reports Hx Arthritis - GENERALIZED, RA Psychiatric Medical History: Reports: Hx Depression Past Surgical History: Reports: Hx Appendectomy, Hx Cholecystectomy, Hx Hysterectomy, Hx Tubal Ligation - Immunizations Immunizations up to date: Yes Hx Diphtheria, Pertussis, Tetanus Vaccination: Yes Vertical Provider Document - CONSTITUTIONAL Agree With Documented VS: Yes - INFECTION CONTROL TRAVEL OUTSIDE OF THE [place] IN LAST 30 DAYS: No - HEENT HEENT: Atraumatic - NECK Neck: Normal Inspection, Supple - RESPIRATORY Respiratory: Breath Sounds Normal, No Respiratory Distress - CARDIOVASCULAR Cardiovascular: Regular Rate, Regular Rhythm - GI/ABDOMEN Gastrointestinal: Abdomen Soft, Abdomen Non-Tender - BACK Back: Normal Inspection - MUSCULOSKELETAL/EXTREMETIES Musculoskeletal/Extremeties: TERRY [place]IL[place]ORE - NEURO Level of Consciousness: Awake, Alert, Appropriate Motor/Sensory: No Motor Deficit, No Sensory Deficit - DERM Integumentary: Warm, Dry. negative: Abscess - Dime-sized area of deep erythema dorsal aspect just proximal of MCP joint middle finger. Scant amount of serrous draingage from pinhead opening in the middle of dime sized wound. Surrounding erythema noted dorsal aspect of hand with tight/warm to touch extending 4cm x4cm. FROM fingers although with discomfort. Course - Re-evaluation Re-evalutation: Patient continues to state that there has been intermittent drainage throughout the day from wound. At this time there is no active fluctuance or need for I& D. Will treat patient with oral antibiotics due to surrounding cellulitis. Talked to patient about keeping the wound clean and to stop picking at it. Return precautions given - Vital Signs Vital signs: Temp Pulse Resp BP Pulse Ox 97.8 F 80 18 138/85 H 99 05/09/18 22:50 05/09/18 22:50 05/09/18 22:50 05/09/18 22:50 05/09/18 22:50 Discharge - Discharge Clinical Impression: Abscess Cellulitis Qualifiers: Site of cellulitis: extremity Site of cellulitis of extremity: upper extremity Laterality: right Qualified Code(s): L03.113 - Cellulitis of right upper limb Condition: Stable Disposition: HOME, SELF-CARE Instructions: Abscess ([facility]), Cephalexin ([facility]) Additional Instructions: You have been seen in the emergency department for cellulitis of the right hand. Take antibiotics as prescribed. Return to the emergency department should you develop fever, the redness and swelling of your right hand gets worse , he developed chest pain or shortness of breath. Follow-up with primary care in 24-48 hours. Prescriptions: Cephalexin Monohydrate [Keflex 500 mg Capsule] 500 mg PO QID #20 capsule Sulfamethoxazole/Trimethoprim [Bactrim Ds Tablet] 1 each PO BID 7 Days #14 tablet Referrals: REEMA HARRY MD [Primary Care Provider] - Follow up as needed
== END 2018-05-10 01:32 | disposition home or self-care (01) ==
LOC: ER 22:44
DX: L03.113 Cellulitis of right upper limb (principal); L02.91 Cutaneous abscess, unspecified; J44.9 Chronic obstructive pulmonary disease, unspecified
CPT/HCPCS: 99283; A9270 ×2

== ENCOUNTER → 2018-10-07 | Outpatient (CLI) | payer MEDICARE, OTHER ==
--- NOTE | 2018-10-07 16:11 | RADIOLOGY REPORT (SQ) ---
EXAM DESCRIPTION: CT ORBIT/SELLA WITHOUT COMPLETED DATE/TIME: 10/07/2018 3:31 pm REASON FOR STUDY: H92.22 OTORRHAGIA, LEFT EAR H92.22 OTORRHAGIA, LEFT EAR COMPARISON: 12/22/2012 CT, 08/23/2017 MRI TECHNIQUE: Noncontrasted images through the orbits windowed for bone and soft tissue. Additional co toby and sagittal reconstructed images reviewed. All images stored on PACS. All CT scanners at this facility use dose modulation, iterative reconstruction, and/or weight based d osing when appropriate to reduce radiation dose to as low as reasonably achievable (ALARA). [facility]: Dose Right [facility]: CareDose [facility]: Dose Right [facility]: Teradose 4D [facility]: [employer] RADIATION DOSE: mGy. LIMITATIONS: None. FINDINGS: FACIAL BONES: No fracture or bone lesion. ORBITS: Intact. No fracture. Symmetric intact globes and retroorbital soft tissues. PARANASAL SINUSES: Clear. No significant mucosal thickening, mass or fluid. No nasal polyps. Maxilla ry sinus outlets are patent. SOFT TISSUES: Linear soft tissue density within the left external auditory canal at the region of the tympanic membrane, likely cerumen. INFERIOR BRAIN: Unchanged hypoattenuation within the left basal ganglia likely corresponding to promi nent perivascular space. OTHER: No other significant finding. IMPRESSION: Linear soft tissue density within the left external auditory canal at the region of the tympanic membrane, likely cerumen. Consider direct visualization. TECHNICAL DOCUMENTATION: JOB ID: [id number] Quality ID # [id number]: Final reports with documentation of one or more dose reduction techniques (e.g., Au tomated exposure control, adjustment of the mA and/or kV according to patient size, use of iterative reconstruction technique) 2010 [employer]- All Rights Reserved Reading location - IP/workstation name: [email or web address]
== END ==
LOC: RAD 15:57
PROVIDERS: ATTEND Internal Medicine
DX: H92.22 Otorrhagia, left ear (principal)
CPT/HCPCS: 70480

== ENCOUNTER → 2018-10-31 | Outpatient (CLI) | payer MEDICARE ==
--- NOTE | 2018-10-31 18:18 | RADIOLOGY REPORT (SQ) ---
EXAM DESCRIPTION: CTA CHEST COMPLETED DATE/TIME: 10/31/2018 5:39 pm REASON FOR STUDY: SHORTNESS OF BREATH R06.02 SHORTNESS OF BREATH COMPARISON: 12/12/2015 TECHNIQUE: CT scan of the chest performed using helical scanning technique with dynamic intravenous contrast injection. Images reviewed with lung, soft tissue and bone windows. Reconstructed coronal and sagittal MPR images reviewed. Additional 3 dimensional post-processing performed to develop Maximal Intensity Projection images (ID P). All images stored on PACS. All CT scanners at this facility use dose modulation, iterative reconstruction, and/or weight based d osing when appropriate to reduce radiation dose to as low as reasonably achievable (ALARA). [facility]: Dose Right [facility]: CareDose [facility]: Dose Right [facility]: Teradose 4D [facility]: MicroJob CONTRAST TYPE AND DOSE: contrast/concentration: Isovue 350.00 mg/ml; Total Contrast Delivered: 81.0 ml; Total Saline Delivered: 80.0 ml Contrast bolus optimized for the pulmonary arteries. Not diagnostic for the aorta. RENAL FUNCTION: Creatinine 0.6 RADIATION DOSE: CT Rad equipment meets quality standard of care and radiation dose reduction techniq ues were employed. CTDIvol: 17.0 - 33.1 mGy. DLP: 664 mGy-cm. . LIMITATIONS: None. FINDINGS: LUNGS AND PLEURA: No masses, infiltrates, or pneumothorax. No pleural effusions or pleura l calcifications. AORTA AND GREAT VESSELS: No aneurysm. Contrast bolus not optimized for the aorta. HEART: No pericardial effusion. No significant coronary artery calcifications. PULMONARY ARTERIES: No emboli visualized in the main pulmonary arteries or the segmental branches. HILAR AND MEDIASTINAL STRUCTURES: No identified masses or abnormal nodes. HARDWARE: None in the chest. UPPER ABDOMEN: No significant findings. Limited exam. THYROID AND OTHER SOFT TISSUES: No masses. No adenopathy. BONES: No acute or significant finding. 3D MIPS: Confirm above findings. OTHER: No other significant finding. IMPRESSION: NORMAL CTA OF THE CHEST. NO PULMONARY EMBOLI. COMMENT: Quality ID # 436: Final reports with documentation of one or more dose reduction techniques (e.g., Automated exposure control, adjustment of the mA and/or kV according to patient size, use of iterative reconstruction technique) TECHNICAL DOCUMENTATION: JOB ID: [id number] [employer]- All Rights Reserved Reading location - IP/workstation name: [email or web address]
== END ==
LOC: RAD 16:14
PROVIDERS: ATTEND Internal Medicine
DX: R06.02 Shortness of breath (principal)
CPT/HCPCS: 71275; 82565

== ENCOUNTER → 2018-11-12 | Outpatient (CLI) | payer MEDICARE ==
--- NOTE | 2018-11-12 16:25 | RADIOLOGY REPORT (SQ) ---
EXAM DESCRIPTION: ARTHRO SHOULDER INJECTION; FLUORO/NEEDLE PLACEMENT COMPLETED DATE/TIME: 11/12/2018 3:44 pm REASON FOR STUDY: M25.512 PAIN IN LEFT SHOULDER M25.512 PAIN IN LEFT SHOULDER COMPARISON: None. FLUOROSCOPY TIME: 10 seconds. 1 images saved to PACS. LIMITATIONS: None. PROCEDURE: Procedure, risks, benefits and alternatives explained to patient who then gave written co nsent. The left shoulder was marked and a time out was called for correct procedure verification. Po sterior entry site marked using fluoroscopic guidance. Shoulder prepped and draped using sterile deandra hnique. Local anesthesia achieved using 1% lidocaine injection. Hypodermic needle introduced into t he joint space under direct fluoroscopic visualization. Non-ionic contrast instilled to confirm intra -articular position. Dilute gadolinium solution then injected. Needle removed and entry site covered with sterile bandage. No immediate complications noted. TECHNIQUE: Digital images acquired during fluoroscopy and stored on PACS. Patient immediately take n to the MR suite for additional imaging. INJECTION LOCATION: Posterior left shoulder. CONTRAST TYPE AND AMOUNT: 1 mL Omnipaque and 10 mL Dotarem/Saline mixture. IMPRESSION: SUCCESSFUL NEEDLE PLACEMENT AND INJECTION FOR LEFT SHOULDER MR ARTHROGRAM USING POSTERIO R APPROACH. COMMENT: Quality ID 145: Final reports for procedures using fluoroscopy that document radiation exp osure indices, or exposure time and number of fluorographic images (if radiation exposure indices are not available) TECHNICAL DOCUMENTATION: JOB ID: [id number] [employer]- All Rights Reserved Reading location - IP/workstation name: [email or web address]
--- NOTE | 2018-11-12 17:07 | RADIOLOGY REPORT (SQ) ---
EXAM DESCRIPTION: MRI LT UPPER JOINT WITH COMPLETED DATE/TIME: 11/12/2018 4:33 pm REASON FOR STUDY: M25.512 PAIN IN LEFT SHOULDER M25.512 PAIN IN LEFT SHOULDER COMPARISON: 2018. TECHNIQUE: Left shoulder images acquired and stored on PACS. Oblique coronal, oblique sagittal, and axial imaging to include fat sensitive sequences as T1, water sensitive sequences as FST2/STIR, and c ontrast sensitive sequences as FST1. LIMITATIONS: Up to moderately limiting motion artifact and inhomogeneous fat suppression. Limited c linical history. Patient reportedly has had surgery x2 but dates are not provided. FINDINGS: JOINT DISTENTION: Adequate. No loose bodies. BONE MARROW AND CORTEX: Normal. AC JOINT: No widening or bulky overgrowth. GLENOHUMERAL JOINT: No overt subluxation or dislocation. No focal or large chondral defects apprecia meron. Mild osteophyte formation. ROTATOR CUFF: Fatty atrophy, most notable in the supraspinatus. Loss of muscle bulk with full-thickn ess supraspinatus tear. Retraction is likely to the level of the glenohumeral joint. infraspinatus tendon looks at least partially intact. There is some tear along posterior insertion which may be hi gh-grade partial to full-thickness. Subscapularis tendon intact. LABRUM AND BICEPS LABRAL COMPLEX: Poorly evaluated. Biceps tendon appears to be in normal location a long the arm. INFERIOR LABRAL COMPLEX: Grossly intact. ADJACENT SOFT TISSUES: No regional mass or axillary adenopathy. OTHER: No other significant finding. IMPRESSION: 1. Full-thickness partial width cuff tear in the supraspinatus with fatty atrophy. At least partial thickness infraspinatus tear. The appearance looks similar but more extensive compared to 2018 study , presumably recurrent tear if the patient had inter current surgery. TECHNICAL DOCUMENTATION: JOB ID: [id number] [employer]- All Rights Reserved Reading location - IP/workstation name: [email or web address]
== END ==
LOC: EDSTATUS 11-05 13:00 → RAD 14:59
PROVIDERS: ATTEND Orthopaedic Surgery
DX: M75.122 Complete rotator cuff tear or rupture of left shoulder, not specified as traumatic (principal); M25.512 Pain in left shoulder
CPT/HCPCS: 23350; 77002

== ENCOUNTER → 2019-05-01 | Outpatient (CLI) | payer MEDICARE ==
--- NOTE | 2019-05-01 12:18 | RADIOLOGY REPORT (SQ) ---
EXAM DESCRIPTION: CERV SP 6 OR MORE COMPLETED DATE/TIME: 05/01/2019 12:09 pm REASON FOR STUDY: (M54.2)CERVICALGIA M54.2 CERVICALGIA COMPARISON: 12/22/2012 NUMBER OF VIEWS: Seven views. TECHNIQUE: AP, lateral, obliques, flexion, extension, and odontoid radiographic images acquired of t he cervical spine. LIMITATIONS: None. FINDINGS: MINERALIZATION: Normal. ALIGNMENT: Anatomic. FLEXION/EXTENSION: No instability. VERTEBRAE: Vertebral bodies of normal height. DISCS: No significant osteophytes or sclerosis. Disc height maintained. FORAMINA: No osteophytes or foraminal narrowing. LATERAL AND POSTERIOR ELEMENTS: Facets, lateral masses, and spinous processes without significant fin dings. HARDWARE: None in the spine. SOFT TISSUES: No masses or calcifications. Lung apices clear. OTHER: No other significant finding. IMPRESSION: NO SIGNIFICANT FINDING ON 7 VIEW SPINE SERIES. NO INSTABILITY ON FLEXION/EXTENSION. TECHNICAL DOCUMENTATION: JOB ID: [id number] [employer]- All Rights Reserved Reading location - IP/workstation name: [email or web address]
== END ==
LOC: RAD 11:43
PROVIDERS: ATTEND Nurse Practitioner Family
DX: M54.2 Cervicalgia (principal)
CPT/HCPCS: 72052

== ENCOUNTER 2019-06-20 08:27 | Emergency (ER) | payer MEDICARE ==
[2019-06-20 08:56] LABS: APPEARANCE,URINE CLEAR; BILIRUBIN,URINE NEGATIVE (NEGATIVE); COLOR,URINE AMBER; GLUCOSE, URINE NEGATIVE (NEGATIVE); KETONES,URINE NEGATIVE (NEGATIVE); LEUKOCYTE ESTERASE,URINE NEGATIVE (NEGATIVE); NITRITE,URINE POSITIVE (NEGATIVE); PROTEIN,URINE 30 mg/dL (NEGATIVE); URINE SPECIFIC GRAVITY 1.021
[2019-06-20] MEDS ORDERED: ONDANSETRON HCL INJ/PF 4 MG/2 ML SDV IV ONE (09:10)
[2019-06-20] MEDS ORDERED: KETOROLAC TROMETHAMINE INJ/PF 30 MG/1 ML SDV IV ONE (09:10)
--- NOTE | 2019-06-20 09:12 | ER Document Report ---
ED Medical Screen (RME) - General Chief Complaint: Pain With Urination Stated Complaint: PAINFUL URINATION,NAUSEA,ABDOMINAL PAIN Time Seen by Provider: 06/20/19 09:05 Primary Care Provider: REEMA HARRY MD [Primary Care Provider] - Follow up as needed Mode of Arrival: Ambulatory Information source: Patient Notes: This 53-year-old female with history of back pain and UTIs presents emergency department with complaints of severe right flank pain, abdominal pain, urinary frequency with burning with void and decreased output. Patient is writhing in bed tearful reports she is nauseated and feels like she is going to vomit but has not vomited. Reports loose stools no complaints of fever. Has been taking Azo without relief of symptoms. I have greeted and performed a rapid initial assessment of this patient. A comprehensive ED assessment and evaluation of the patient, analysis of test results and completion of the medical decision making process will be conducted by additional ED providers. Dictation of this chart was performed using voice recognition software; therefore, there may be some unintended grammatical errors. TRAVEL OUTSIDE OF THE [place] IN LAST 30 DAYS: No - Related Data Allergies/Adverse Reactions: No Known Allergies Allergy (Verified 12/20/17 10:01) Past Medical History - Past Medical History Cardiac Medical History: Denies: Hx Coronary Artery Disease, Hx Heart Attack, Hx Hypertension Pulmonary Medical History: Reports: Hx Bronchitis, Hx COPD - ALBUTEROL PRN, Hx Pneumonia - "LONG TIME AGO" Denies: Hx Asthma Neurological Medical History: Reports: Hx Migraine. Denies: Hx Cerebrovascular Accident, Hx Seizures Renal/ Medical History: Denies: Hx Peritoneal Dialysis GI Medical History: Reports: Hx Gastroesophageal Reflux Disease Musculoskeltal Medical History: Reports Hx Arthritis - GENERALIZED, RA Psychiatric Medical History: Reports: Hx Depression Past Surgical History: Reports: Hx Appendectomy, Hx Cholecystectomy, Hx Hysterectomy, Hx Tubal Ligation - Immunizations Immunizations up to date: Yes Hx Diphtheria, Pertussis, Tetanus Vaccination: Yes Physical Exam - Vital signs Vitals: Temp Pulse Resp BP Pulse Ox 98.2 F 83 20 154/91 H 98 06/20/19 08:32 06/20/19 08:32 06/20/19 08:32 06/20/19 08:32 06/20/19 08:32 Course - Vital Signs Vital signs: Temp Pulse Resp BP Pulse Ox 98.2 F 83 20 154/91 H 98 06/20/19 08:32 06/20/19 08:32 06/20/19 08:32 06/20/19 08:32 06/20/19 08:32 - Laboratory Laboratory results interpreted by me: 06/20/19 08:42 Urine Protein 30 H Urine Blood MODERATE H Urine Nitrite POSITIVE H Urine Urobilinogen 4.0 H Doctor's Discharge - Discharge Referrals: REEMA HARRY MD [Primary Care Provider] - Follow up as needed
[2019-06-20 09:42] LABS: ABSOLUTE EOSINOPHILS # (AUTO) 0.1 10^3/uL (0.0-0.6); ABSOLUTE LYMPHOCYTES (AUTO) 2.5 10^3/uL (0.5-4.7); ABSOLUTE NEUT (AUTO) 8.1 10^3/uL (1.7-8.2); BASOPHILS % (AUTO) 0.2 % (0-2); EOSINOPHILS % (AUTO) 0.9 % (0-6); HEMATOCRIT 37.5 % (36.0-47.0); HEMOGLOBIN 12.6 g/dL (12.0-15.5); LYMPHOCYTES % (AUTO) 21.6 % (13-45); MEAN CORPUSCULAR HEMOGLOBIN 31.6 pg (27.0-33.4); MEAN CORPUSCULAR HGB CONC 33.5 g/dL (32.0-36.0); MEAN CORPUSCULAR VOLUME 94 fl (80-97); MONOCYTES % (AUTO) 8.3 % (3-13); PLATELET COUNT 322 10^3/uL (150-450); RED BLOOD COUNT 3.97 10^6/uL (3.72-5.28); RED CELL DISTRIBUTION WIDTH 12.2 % (11.5-14.0); TOTAL CELLS COUNTED % (AUTO) 100 %; WHITE BLOOD COUNT 11.7 10^3/uL (4.0-10.5)
[2019-06-20 09:57] LABS: ALBUMIN 3.9 g/dL (3.5-5.0); ALKALINE PHOSPHATASE 135 U/L (38-126); ANION GAP 8 (5-19); ASPARTATE AMINO TRANSFERASE 30 U/L (14-36); BILIRUBIN,TOTAL 0.5 mg/dL (0.2-1.3); BLOOD UREA NITROGEN 15 mg/dL (7-20); CALCIUM 9.5 mg/dL (8.4-10.2); CARBON DIOXIDE 31 mmol/L (22-30); CHLORIDE 100 mmol/L (98-107); GLUCOSE 132 mg/dL (75-110); POTASSIUM 3.9 mmol/L (3.6-5.0); TOTAL PROTEIN 7.3 g/dL (6.3-8.2)
[2019-06-20] MEDS ORDERED: CEFTRIAXONE 1 GM/D5W RTU 1 GM/50 ML RTUPB IV ONE (10:39)
[2019-06-20] MEDS ORDERED: HYDROCODONE/ACETAMINOPHEN 5-325 MG TABLET PO ONE (10:39)
[2019-06-20] MEDS ORDERED: NORMAL SALINE 1000 ML 1,000 ML IV ONE (10:43)
--- NOTE | 2019-06-20 10:43 | ER Document Report ---
ED GI/ - General Chief Complaint: Pain With Urination Stated Complaint: PAINFUL URINATION,NAUSEA,ABDOMINAL PAIN Time Seen by Provider: 06/20/19 09:05 Primary Care Provider: REEMA HARRY MD [Primary Care Provider] - Follow up as needed Mode of Arrival: Ambulatory Notes: HPI: Patient is a 53-year-old female who presents today with the onset around of some frequent urination and dysuria. She started to develop some right flank pain today. No fevers. Nausea without vomiting. No diarrhea or constipation. Some mild suprapubic abdominal pain as well. No history of kidne y stones. No other aggravating or relieving factors. ROS: See HPI All other review of systems reviewed and otherwise negative Reviewed vital signs and nursing note as charted by RN. PHYSICAL EXAM: CONSTITUTIONAL: Alert and oriented and responds appropriately to questions. Well-appearing; well-nourished HEAD: Normocephalic; atraumatic EYES: PERRL; Conjunctivae clear, sclerae non-icteric ENT: Normal nose; no rhinorrhea; moist mucous membranes; pharynx without lesions noted NECK: Supple without meningismus; non-tender; no cervical lymphadenopathy, no masses CARD: Regular rate and rhythm; no murmurs; symmetric distal pulses RESP: Normal chest excursion without splinting or tachypnea; breath sounds clear and equal bilaterally; no wheezes, no rhonchi, no rales ABD/GI: Normal bowel sounds; non-distended; soft, highly tender the suprapubic region without rebound or guarding; no palpable masses or abdominal bruits BACK: The back appears normal and is non-tender to palpation; no CVA tenderness EXT: Normal ROM in all joints; non-tender to palpation; no edema SKIN: No acute lesions noted NEURO: CN 2-12 intact; 5/5 bilateral upper and lower extremity strength with sensation intact to light touch PSYCH: The patient's mood and manner are appropriate. Grooming and personal hy giene are appropriate. TRAVEL OUTSIDE OF THE [place] IN LAST 30 DAYS: No - Related Data Allergies/Adverse Reactions: No Known Allergies Allergy (Verified 12/20/17 10:01) Past Medical History - General Information source: Patient - Social History Smoking Status: Unknown if Ever Smoked Family History: Arthritis, Hyperlipidemia, Malignancy Patient has suicidal ideation: No Patient has homicidal ideation: No - Past Medical History Cardiac Medical History: Denies: Hx Coronary Artery Disease, Hx Heart Attack, Hx Hypertension Pulmonary Medical History: Reports: Hx Bronchitis, Hx COPD - ALBUTEROL PRN, Hx Pneumonia - "LONG TIME AGO" Denies: Hx Asthma Neurological Medical History: Reports: Hx Migraine. Denies: Hx Cerebrovascular Accident, Hx Seizures Renal/ Medical History: Denies: Hx Peritoneal Dialysis GI Medical History: Reports: Hx Gastroesophageal Reflux Disease Musculoskeletal Medical History: Reports Hx Arthritis - GENERALIZED, RA Psychiatric Medical History: Reports: Hx Depression Past Surgical History: Reports: Hx Appendectomy, Hx Cholecystectomy, Hx Hysterectomy, Hx Tubal Ligation - Immunizations Immunizations up to date: Yes Hx Diphtheria, Pertussis, Tetanus Vaccination: Yes Physical Exam - Vital signs Vitals: Temp Pulse Resp BP Pulse Ox 98.2 F 83 20 154/91 H 98 06/20/19 08:32 06/20/19 08:32 06/20/19 08:32 06/20/19 08:32 06/20/19 08:32 Course - Re-evaluation Re-evalutation: 06/20/19 10:40 Given the history and physical examination, we ordered a urine analysis, basic labs, and provided fluids. Given the urine analysis, urine culture will be sent and Rocephin will be started. Patient has not vomited. Glucose as recorded. Patient does have hematuria present in the urine analysis. We will obtain a CT renal colic protocol in order to assess the possibility of a kidney stone. Given the above history and physical, we we will provide a short course of pain medications, antibiotics, nausea meds, and assess the kidney stone CT scan. 06/20/19 13:12 Labs and imaging as recorded. Patient has been afebrile does not have diabetes. I have called and spoken to the urologist at [facility] Dr. Rodas. I have explained the full history and physical examination. I explained the laboratory results and the CT scan. He states that he will see the patient in clinic this week. He does believe the patient could try outpatient management. Patient's pain is improved. We will provide Flomax, pain meds, nausea medications, with strict return precautions. - Vital Signs Vital signs: Temp Pulse Resp BP Pulse Ox 98.2 F 83 20 154/91 H 98 06/20/19 08:32 06/20/19 08:32 06/20/19 08:32 06/20/19 08:32 06/20/19 08:32 - Laboratory Result Diagrams: 06/20/19 09:26 06/20/19 09:26 Laboratory results interpreted by me: 06/20/19 06/20/19 06/20/19 08:42 09:26 09:26 WBC 11.7 H Carbon Dioxide 31 H Glucose 132 H Alkaline Phosphatase 135 H Urine Protein 30 H Urine Blood MODERATE H Urine Nitrite POSITIVE H Urine Urobilinogen 4.0 H Discharge - Discharge Clinical Impression: Kidney stone UTI (urinary tract infection) Qualifiers: Urinary tract infection type: site unspecified Hematuria presence: without hematuria Qualified Code(s): N39.0 - Urinary tract infection, site not specified Condition: Good Disposition: HOME, SELF-CARE Additional Instructions: Come back immediately with any increased pain, change in location or quality of pain, fevers or vomiting, or any other acute problems. Please make sure that you follow-up with the urologist as we have discussed. Prescriptions: Tamsulosin HCl [Flomax 0.4 mg Cap.sr] 0.4 mg PO DAILY #7 cap.sr.24h Cephalexin Monohydrate [Keflex 500 mg Capsule] 500 mg PO Q6H 10 Days #40 capsule Oxycodone HCl/Acetaminophen [Percocet 5-325 mg Tablet] 1 tab PO ASDIR PRN #15 tab PRN Reason: Referrals: REEMA HARRY MD [Primary Care Provider] - Follow up as needed KEIKO RODAS MD [[facility]] - Follow up as needed
--- NOTE | 2019-06-20 12:07 | RADIOLOGY REPORT (SQ) ---
EXAM DESCRIPTION: CT ABD/PELVIS NO ORAL OR IV COMPLETED DATE/TIME: 06/20/2019 11:14 am REASON FOR STUDY: 19; right flank pain COMPARISON: CT angio chest 10/31/2018 TECHNIQUE: CT scan of the abdomen and pelvis performed without intravenous or oral contrast. Images reviewed with lung, soft tissue, and bone windows. Reconstructed coronal and sagittal MPR images revi ewed. All images stored on PACS. All CT scanners at this facility use dose modulation, iterative reconstruction, and/or weight based d osing when appropriate to reduce radiation dose to as low as reasonably achievable (ALARA). [facility]: Dose Right [facility]: CareDose [facility]: Dose Right [facility]: Teradose 4D [facility]: [employer] RADIATION DOSE: CT Rad equipment meets quality standard of care and radiation dose reduction techniq ues were employed. CTDIvol: 8.4 mGy. DLP: 518 mGy-cm.mGy. LIMITATIONS: None. FINDINGS: Moderate right hydronephrosis and hydroureter is seen, down to the level of the right uret erovesical junction. At the right UVJ, 6 mm calculus is present best shown on axial image 89 and cor onal image 48 measuring 670 Hounsfield units. Elsewhere in the right kidney no other stones are identified. No right renal cysts or masses on non contrasted CT. Mild perinephric stranding. LOWER CHEST: No significant findings. No nodules or infiltrates. NON-CONTRASTED LIVER, SPLEEN, ADRENALS: Evaluation limited by lack of IV contrast. No identified sign ificant masses. PANCREAS: No masses. No peripancreatic inflammatory changes. GALLBLADDER: Surgically absent RIGHT KIDNEY AND URETER: As above. LEFT KIDNEY AND URETER: No suspicious masses. Assessment limited by lack of IV contrast. No signifi cant calcifications. No hydronephrosis or hydroureter. AORTA AND RETROPERITONEUM: No aneurysm. No retroperitoneal masses or adenopathy. BOWEL AND PERITONEAL CAVITY: No obvious masses or inflammatory changes. No free fluid. APPENDIX: Not identified. No right lower quadrant inflammatory change PELVIS, BLADDER, AND ABDOMINAL WALL:No abnormal masses. No free fluid. Bladder normal. Post hysterec armond BONES: No significant findings. OTHER: No other significant finding. IMPRESSION: 6 mm distal right ureteral stone at the ureterovesical junction causing moderate right h ydronephrosis and hydroureter, and perinephric stranding COMMENT: Quality ID # [id number]: Final reports with documentation of one or more dose reduction techniques (e.g., Automated exposure control, adjustment of the mA and/or kV according to patient size, use of iterative reconstruction technique) TECHNICAL DOCUMENTATION: JOB ID: [id number] [employer]- All Rights Reserved Reading location - IP/workstation name: [email or web address]
[2019-06-20] MEDS ORDERED: MORPHINE SULFATE 10 MG/ML INJ IV ONE (12:23)
[2019-06-20] MEDS ORDERED: TAMSULOSIN HCL 0.4 MG CAP.SR.24H PO ONE (13:16)
[2019-06-20] MEDS ORDERED: FENTANYL CITRATE INJ/PF 100 MCG/2 ML AMPUL IV ONE (13:28)
[2019-06-20 14:15] VITALS: BP 148/80
== END 2019-06-20 14:15 | disposition home or self-care (01) ==
LOC: ER 08:27
DX: N20.0 Calculus of kidney (principal); N39.0 Urinary tract infection, site not specified; R30.9 Painful micturition, unspecified; R11.0 Nausea; R10.9 Unspecified abdominal pain; R30.0 Dysuria; J44.9 Chronic obstructive pulmonary disease, unspecified
CPT/HCPCS: 99284; 96361; 96375; 96365; 36415; 87086; 85025; 87088; 80053; 81001; 87186; 74176; J3010; J1885; J2270; A9270 ×2; J2405; J7030; J0696

== ENCOUNTER → 2020-03-15 | Outpatient (CLI) | payer MEDICARE ==
--- NOTE | 2020-03-15 15:28 | RADIOLOGY REPORT (SQ) ---
EXAM DESCRIPTION: MRI CERVICAL SPINE WITHOUT IMAGES COMPLETED DATE/TIME: 03/15/2020 3:03 pm REASON FOR STUDY: CERVICAL RADICULOPATHY (M54.12), CERVICALGIA (M54.2) M54.12 RADICULOPATHY, CERVIC AL REGION M54.2 CERVICALGIA COMPARISON: None. TECHNIQUE: Sagittal and Axial imaging includes T1, T2, STIR and gradient echo sequences. LIMITATIONS: Motion. FINDINGS: ALIGNMENT: Normal. VERTEBRAE: Intact. BONE MARROW: Round focus of decreased T1 and T2 signal in the C4 vertebral body series 3, image 6, pr obably a bone island. DISCS: Desiccation multiple levels. HARDWARE: None in the spine. CORD AND BASE OF BRAIN: Normal in size and signal intensity. SOFT TISSUES: No soft tissue masses. C1-C2: No significant spinal stenosis. C2-C3: No significant spinal stenosis or exit foraminal stenosis. C3-C4: Minimal narrowing of the spinal canal due to disc bulge and uncovertebral arthropathy. Modera te right neural foraminal narrowing. C4-C5: Minimal narrowing of the spinal canal due to disc bulge. C5-C6: Moderate spinal stenosis due to central disc herniation and uncovertebral arthropathy. Modera te neural foraminal narrowing bilaterally. C6-C7: Mild spinal stenosis. Moderate neural foraminal narrowing bilaterally. C7-T1: No significant spinal stenosis or exit foraminal stenosis. UPPER THORACIC: Incompletely imaged. No significant spinal stenosis or exit foraminal stenosis. OTHER: No other significant finding. IMPRESSION: 1. Spinal stenosis at multiple levels, more advanced at C5-6. 2. Probable benign bone island C4. Recommend follow-up CT of the cervical spine. TECHNICAL DOCUMENTATION: JOB ID: [id number] 2010 [employer]- All Rights Reserved Reading location - IP/workstation name: [email or web address]
== END ==
LOC: RAD 13:45
PROVIDERS: ATTEND Physician Assistant
DX: M54.12 Radiculopathy, cervical region (principal); M48.02 Spinal stenosis, cervical region; M54.2 Cervicalgia
CPT/HCPCS: 72141

== ENCOUNTER 2020-06-04 18:24 | Emergency (ER) | payer MEDICARE ==
--- NOTE | 2020-06-04 19:18 | ER Document Report ---
ED Medical Screen (RME) - General Chief Complaint: Sore Throat Stated Complaint: SORE THROAT,HEADACHE Time Seen by Provider: 06/04/20 19:13 Primary Care Provider: REEMA HARRY MD [Primary Care Provider] - Follow up as needed Mode of Arrival: Ambulatory Information source: Patient Notes: 54-year-old female presented to ED for complaint of sore throat scratchy throat heart racing states she is got hot and cold flashes but no fever. She states she has been nauseated and abdominal pain. She just came from out of [facility] in [facility]. Patient is alert oriented respirations regular nonlabored speaking in full sentences. She states she does not know what is going on at all started last couple days. I have greeted and performed a rapid initial assessment of this patient. A comprehensive ED assessment and evaluation of the patient, analysis of test results and completion of medical decision making process will be conducted by an additional ED providers. TRAVEL OUTSIDE OF THE [place] IN LAST 30 DAYS: No - Related Data Allergies/Adverse Reactions: No Known Allergies Allergy (Verified 12/20/17 10:01) Past Medical History - Past Medical History Cardiac Medical History: Denies: Hx Coronary Artery Disease, Hx Heart Attack, Hx Hypertension Pulmonary Medical History: Reports: Hx Bronchitis, Hx COPD - ALBUTEROL PRN, Hx Pneumonia - "LONG TIME AGO" Denies: Hx Asthma Neurological Medical History: Reports: Hx Migraine. Denies: Hx Cerebrovascular Accident, Hx Seizures Renal/ Medical History: Denies: Hx Peritoneal Dialysis GI Medical History: Reports: Hx Gastroesophageal Reflux Disease Musculoskeltal Medical History: Reports Hx Arthritis - GENERALIZED, RA Psychiatric Medical History: Reports: Hx Depression Past Surgical History: Reports: Hx Appendectomy, Hx Cholecystectomy, Hx Hysterectomy, Hx Tubal Ligation - Immunizations Immunizations up to date: Yes Hx Diphtheria, Pertussis, Tetanus Vaccination: Yes Physical Exam - Vital signs Vitals: Temp Pulse Resp BP Pulse Ox 98.5 F 85 18 160/88 H 98 06/04/20 18:29 06/04/20 18:29 06/04/20 18:29 06/04/20 18:29 06/04/20 18:29 Course - Vital Signs Vital signs: Temp Pulse Resp BP Pulse Ox 98.5 F 85 18 160/88 H 98 06/04/20 18:29 06/04/20 18:29 06/04/20 18:29 06/04/20 18:29 06/04/20 18:29 Doctor's Discharge - Discharge Referrals: REEMA HARRY MD [Primary Care Provider] - Follow up as needed
--- NOTE | 2020-06-04 20:49 | RADIOLOGY REPORT (SQ) ---
EXAM DESCRIPTION: XR CHEST 1 VIEW COMPLETED DATE/TME: 06/04/2020 19:17 CLINICAL HISTORY: 54 years Female hot and cold nausea COMPARISON: None. FINDINGS: The cardiomediastinal silhouette appears unremarkable. No consolidating infiltrates or pleural effusions. No pneumothorax. IMPRESSION: No acute abnormality is identified.
[2020-06-04] MEDS ORDERED: BENZONATATE 100 MG CAPSULE PO ONE (22:44)
[2020-06-04] MEDS ORDERED: IPRATROPIUM/ALBUTEROL 0.5-2.5 MG/3 ML AMPUL NEB ONE (22:44)
[2020-06-04 23:41] LABS: APPEARANCE,URINE SLIGHTLY-CLOUDY; BILIRUBIN,URINE NEGATIVE (NEGATIVE); COLOR,URINE YELLOW; GLUCOSE, URINE NEGATIVE (NEGATIVE); KETONES,URINE NEGATIVE (NEGATIVE); LEUKOCYTE ESTERASE,URINE NEGATIVE (NEGATIVE); NITRITE,URINE NEGATIVE (NEGATIVE); PROTEIN,URINE NEGATIVE (NEGATIVE); UROBILINOGEN,URINE NEGATIVE mg/dL (<2.0)
[2020-06-04 23:58] LABS: A TYPE INFLUENZA AG NEGATIVE (NEGATIVE); B INFLUENZA AG NEGATIVE (NEGATIVE)
[2020-06-05 00:26] LABS: HEMATOCRIT 35.1 % (36.0-47.0); HEMOGLOBIN 12.5 g/dL (12.0-15.5); MEAN CORPUSCULAR HEMOGLOBIN 33.4 pg (27.0-33.4); MEAN CORPUSCULAR HGB CONC 35.7 g/dL (32.0-36.0); MEAN CORPUSCULAR VOLUME 93 fl (80-97); PLATELET COUNT 222 10^3/uL (150-450); RED BLOOD COUNT 3.76 10^6/uL (3.72-5.28); RED CELL DISTRIBUTION WIDTH 12.9 % (11.5-14.0); WHITE BLOOD COUNT 5.7 10^3/uL (4.0-10.5)
[2020-06-05 00:43] LABS: ALBUMIN 3.6 g/dL (3.5-5.0); ALKALINE PHOSPHATASE 172 U/L (38-126); ANION GAP 7 (5-19); ASPARTATE AMINO TRANSFERASE 25 U/L (14-36); BILIRUBIN,DIRECT 0.3 mg/dL (0.0-0.4); BILIRUBIN,TOTAL 0.4 mg/dL (0.2-1.3); BLOOD UREA NITROGEN 15 mg/dL (7-20); CALCIUM 8.9 mg/dL (8.4-10.2); CARBON DIOXIDE 27 mmol/L (22-30); CHLORIDE 105 mmol/L (98-107); GLUCOSE 117 mg/dL (75-110); POTASSIUM 3.6 mmol/L (3.6-5.0); TOTAL PROTEIN 6.5 g/dL (6.3-8.2)
[2020-06-05 01:03] LABS: ABSOLUTE LYMPHOCYTES# (MANUAL) 3.6 10^3/uL (0.5-4.7); ABSOLUTE MONOCYTES # (MANUAL) 0.4 10^3/uL (0.1-1.4); BASOPHILS % (MANUAL) 0 % (0-2); EOSINOPHILS % (MANUAL) 1 % (0-6); LYMPHOCYTES % (MANUAL) 57 % (13-45); MONOCYTES % (MANUAL) 7 % (3-13); PLATELET COMMENT ADEQUATE; SEGMENTED NEUTROPHILS % (MAN) 29 % (42-78); TOTAL CELLS COUNTED 100
--- NOTE | 2020-06-05 01:03 | ER Document Report ---
ED General - General Chief Complaint: Sore Throat Stated Complaint: SORE THROAT,HEADACHE Time Seen by Provider: 06/04/20 19:13 Primary Care Provider: REEMA HARRY MD [Primary Care Provider] - Follow up as needed Mode of Arrival: Ambulatory Notes: Patient is a 54-year-old female presents emergency department with a chief complaint of a sore throat and headache that started a few days ago. Patient states that she has had had hot and cold flashes. Denies any fever. States that she has had some nausea and abdominal discomfort. Denies any vomiting or diarrhea. Patient states that she has family members that have tested positive for COVID-19 and she has been in close contact with them. TRAVEL OUTSIDE OF THE [place] IN LAST 30 DAYS: No - Related Data Allergies/Adverse Reactions: No Known Allergies Allergy (Verified 12/20/17 10:01) Past Medical History - General Information source: Patient - Social History Smoking Status: Never Smoker Family History: Arthritis, Hyperlipidemia, Malignancy - Past Medical History Cardiac Medical History: Denies: Hx Coronary Artery Disease, Hx Heart Attack, Hx Hypertension Pulmonary Medical History: Reports: Hx Bronchitis, Hx COPD - ALBUTEROL PRN, Hx Pneumonia - "LONG TIME AGO" Denies: Hx Asthma Neurological Medical History: Reports: Hx Migraine. Denies: Hx Cerebrovascular Accident, Hx Seizures Renal/ Medical History: Denies: Hx Peritoneal Dialysis GI Medical History: Reports: Hx Gastroesophageal Reflux Disease Musculoskeletal Medical History: Reports Hx Arthritis - GENERALIZED, RA Psychiatric Medical History: Reports: Hx Depression Past Surgical History: Reports: Hx Appendectomy, Hx Cholecystectomy, Hx Hysterectomy, Hx Tubal Ligation - Immunizations Immunizations up to date: Yes Hx Diphtheria, Pertussis, Tetanus Vaccination: Yes Review of Systems - Review of Systems Notes: REVIEW OF SYSTEMS: CONSTITUTIONAL : See HPI. EENT: See HPI. CARDIOVASCULAR: Denies chest pain. RESPIRATORY: Denies shortness of breath, cough, congestion, difficulty breathing, or wheezing. GASTROINTESTINAL: See HPI. GENITOURINARY: Denies difficulty urinating, burning, blood in urine, urgency or frequency. MUSCULOSKELETAL: Denies neck and back pain. Denies joint pain or swelling. SKIN: Denies rash, itchiness, or lesions HEMATOLOGIC : Denies easy bruising or bleeding. LYMPHATIC: Denies swollen, painful, enlarged glands. NEUROLOGICAL: Denies no numbness or tingling denies weakness. Denies headache. Denies altered mental status. Denies alteration in speech. PSYCHIATRIC: Denies stress, anxiety, alteration in sleep patterns, or depression. All other systems reviewed and negative. Physical Exam - Vital signs Vitals: Temp Pulse Resp BP Pulse Ox 98.5 F 85 18 160/88 H 98 06/04/20 18:29 06/04/20 18:29 06/04/20 18:29 06/04/20 18:29 06/04/20 18:29 - Notes Notes: PHYSICAL EXAMINATION: GENERAL: Appears well, healthy, well-nourished, no acute distress. HEAD: Normocephalic, atraumatic. EYES: PERRL, conjunctiva normal, all extraocular movements intact, sclera nonicteric ENT: Moist mucous membranes. NECK: Supple, no noticeable swelling, redness, rash. Normal range of motion. LUNGS: Expiratory wheezes noted throughout all lung price. CARDIOVASCULAR: S1-S2, regular rate, regular rhythm. Radial pulses 2+, normal. ABDOMEN: Normoactive bowel sounds. Soft, nontender, no guarding, no rebound tenderness, and no masses palpated. EXTREMITIES: Normal strength and range of motion, no pitting or edema. No cyanosis. NEUROLOGICAL: Moves all extremities upon command. Strength 5/5 in all extremities. PSYCH: Normal mood, normal affect. SKIN: Warm, dry. No rash, lesions, ulcerations noted. Normal skin turgor. Course - Re-evaluation Re-evalutation: 06/05/20 00:58 Chemistries are unremarkable. LFTs are normal. Urinalysis is normal. Strep and flu test are negative. The patient was evaluated during the global COVID-19 pandemic and that diagnosis was suspected/considered upon their initial presentation. Their evaluation, treatment and testing was consistent with current guidelines for patients who present with complaints or symptoms that may be related to COVID-19. Chest x-ray is unremarkable. Patient states that she feels better after receiving a breathing treatment. She has an albuterol inhaler at home. Follow-up precautions were given. Verbal discharge instructions were given to the patient. They verbalized understanding. They are stable for discharge. - Vital Signs Vital signs: Temp Pulse Resp BP Pulse Ox 97.5 F 80 17 165/91 H 100 06/05/20 01:12 06/05/20 01:12 06/05/20 01:12 06/05/20 01:12 06/05/20 01:12 - Laboratory Result Diagrams: 06/04/20 23:47 06/04/20 23:47 Laboratory results interpreted by me: 06/04/20 06/04/20 23:47 23:47 Hct 35.1 L Seg Neuts % (Manual) 29 L Lymphocytes % (Manual) 57 H Glucose 117 H Alkaline Phosphatase 172 H Discharge - Discharge Clinical Impression: Sore throat, Cough, Suspected COVID-19 virus infection Condition: Stable Disposition: HOME, SELF-CARE Instructions: COVID-19 Guidance for Persons Under Investigation Additional Instructions: You were seen today in the emergency department for sore throat, cough, and congestion. You most likely have COVID-19. You were tested here in the emergency department. Stay in quarantine until the health department calls you with your results. If they are positive, stay in quarantine for 2 weeks. Continue current medications as prescribed. Use your albuterol inhaler. You can take 1 puff every 4-6 hours as needed for shortness of breath. Referrals: REEMA HARRY MD [Primary Care Provider] - Follow up as needed
[2020-06-05 01:05] LABS: OVALOCYTES SLIGHT
[2020-06-05 01:12] VITALS: BP 165/91
== END 2020-06-05 01:12 | disposition home or self-care (01) ==
LOC: ER 18:24
DX: U07.1 COVID-19 (principal); J02.9 Acute pharyngitis, unspecified; R05 Cough; R51.9 Headache, unspecified; J44.9 Chronic obstructive pulmonary disease, unspecified; Z90.49 Acquired absence of other specified parts of digestive tract
CPT/HCPCS: 94640; 99284; 36415; 87070; 87086; 87880; 85025; 87088; 80053; 81001; 87804; 71045; U0003; A9270; C9803; 87635